=== PATIENT | female | born 1930 | race Caucasian/White ===

== ENCOUNTER 2017-09-07 08:57 | Emergency (ER) | payer MEDICARE ==
[~2017-09-07] VITALS: Ht 165.1 cm; Wt 83.9 kg
[2017-09-07] MEDS ORDERED: ASPIR 8181 MG PO (09:11)
[2017-09-07] MEDS ORDERED: CARVEDILOL12.5 MG PO (09:12)
[2017-09-07] MEDS ORDERED: CALICUM 500+D1 EACH PO (09:12)
[2017-09-07] MEDS ORDERED: VITAMIN D1000 UNI1 PO (09:12)
[2017-09-07] MEDS ORDERED: GABAPENTIN 100100 MG PO (09:12)
[2017-09-07] MEDS ORDERED: SYNTHROID75 MCG PO (09:13)
[2017-09-07] MEDS ORDERED: IMDUR 30 MG TAB30 M1 PO (09:13)
[2017-09-07] MEDS ORDERED: AMARYL4 MG PO (09:13)
[2017-09-07] MEDS ORDERED: LANTUS100 UNIT/M SUBQ (09:13)
[2017-09-07] MEDS ORDERED: METFORMIN HCL500 MG PO (09:14)
[2017-09-07] MEDS ORDERED: NITROGLYCERIN0.3 M1 PO (09:14)
[2017-09-07] MEDS ORDERED: OMEPRAZOLE 20 M20 M1 PO (09:14)
[2017-09-07] MEDS ORDERED: MAXZIDE-25 MG1 EACH PO (09:15)
[2017-09-07 09:40] LABS: ABSOLUTE BASOPHILS 0.1 thou/uL (0.0-0.2); ABSOLUTE EOSINOPHILS 0.3 thou/uL (0.0-0.7); ABSOLUTE LYMPHOCYTES 1.6 thou/uL (0.8-5.3); ABSOLUTE MONOCYTES 0.6 thou/uL (0.0-1.2); ABSOLUTE NEUTROPHILS 4.8 thou/uL (1.6-8.1); BASOPHILS 0.9 %; EOSINOPHILS 3.5 %; HEMATOCRIT 41.6 % (37.0-47.0); HEMOGLOBIN 13.9 gm/dL (12.0-15.0); LYMPHOCYTES 22.5 %; MCHC 33.4 g/dL (28.0-37.0); MCV 89.8 fL (80.0-100.0); MONOCYTES 8.2 %; MPV 8.9 fl. (7.2-11.1); NUCLEATED RBCS 0 /100WBC; PLATELET COUNT* 298 thou/uL (150-400); POLYS 64.9 %; RBC 4.63 mil/uL (4.20-5.00); RDW-CV 16.2 % (10.5-14.5); WBC 7.3 thou/uL (4.0-11.0)
[2017-09-07 09:42] LABS: ANION GAP 10 mmol/L (7-16); BUN 21 mg/dL (7-18); CALCIUM 9.4 mg/dL (8.5-10.1); CHLORIDE 99 mmol/L (98-107); CO2 26 mmol/L (21-32); GLUCOSE 211 mg/dL (70-99); POTASSIUM 4.2 mmol/L (3.5-5.1); SODIUM 135 mmol/L (136-145)
[2017-09-07 09:45] LABS: APTT 26.7 Seconds (25.0-31.3); PROTIME 10.2 Seconds (9.20-11.50)
[2017-09-07 09:53] LABS: ALBUMIN 3.6 g/dL (3.4-5.0); ALKALINE PHOSPHATASE 64 U/L (46-116); LIPASE 166 U/L (73-393); NT-PRO BRAIN NAT PEPTIDE 134 pg/mL (<300); SGOT 14 U/L (15-37); SGPT 21 U/L (30-65); TOTAL BILIRUBIN 0.5 mg/dL (<0.1-1.0); TOTAL PROTEIN 7.3 g/dL (6.4-8.2); TROPONIN-I LEVEL <0.06 ng/mL (<0.06)
--- NOTE | 2017-09-07 11:55 | EKG ---
[place] [address] ELECTROCARDIOGRAM REPORT Name: KEATON CALZADA Room: [facility]#: [id number] Admission: 09/07/17 Attend Phys: Discharge: Date of : 34 Report #: [id number] THIS REPORT FOR: //name// [facility] ED Test Date: 2017-09-07 Test Time: 09:01:35 Pat Name: KEATON CALZADA Department: Room: Gender: F Sheet Cutter: Regla ROBERTSON : 1930 Requested By: Kim Weinstein Order Number: [id number] MD: Isauro Amador Measurements Intervals [place] Rate: 59 P: 49 IA: 188 QRS: 34 QRSD: 112 T: 53 QT: 457 QTc: 453 Interpretive Statements Sinus rhythm poor r wave progression Borderline low voltage, extremity leads No previous ECG available for comparison Electronically Signed On 09-07-2017 11:55:20 CDT by Isauro Amador [email or web address] <ELECTRONICALLY SIGNED> By: Isauro Amador MD, [facility] 09/07/17 1155 0901 0901 Isauro Amador MD, FACC /EPI
[2017-09-07] MEDS ORDERED: TORADOL 10 MG T10 MG PO (12:21)
[2017-09-07] MEDS ORDERED: DIAZEPAM 2MG TAB2 MG PO (12:21)
[2017-09-07 12:25] VITALS: BP 131/61
== END 2017-09-07 12:25 | disposition home or self-care (01) ==
LOC: M.ERS 08:57
PROVIDERS: Personal Emergency Response Attendant
DX: R07.89 Other chest pain (principal); E11.9 Type 2 diabetes mellitus without complications; I10 Essential (primary) hypertension; E78.00 Pure hypercholesterolemia, unspecified; Z90.49 Acquired absence of other specified parts of digestive tract; Z90.89 Acquired absence of other organs; Z88.0 Allergy status to penicillin; Z79.4 Long term (current) use of insulin

== ENCOUNTER 2017-09-18 07:28 | Emergency (ER) | payer MEDICARE ==
[~2017-09-18] VITALS: Ht 165.1 cm; Wt 81.7 kg
[~2017-09-18 07:28] MED LIST: AMARYL4 MG PO; ASPIR 8181 MG PO; CALICUM 500+D1 EACH PO; CARVEDILOL12.5 MG PO; DIAZEPAM 2MG TAB2 MG PO; GABAPENTIN 100100 MG PO; IMDUR 30 MG TAB30 M1 PO; LANTUS100 UNIT/M SUBQ; MAXZIDE-25 MG1 EACH PO; METFORMIN HCL500 MG PO; NITROGLYCERIN0.3 M1 PO; OMEPRAZOLE 20 M20 M1 PO; SYNTHROID75 MCG PO; TORADOL 10 MG T10 MG PO; VITAMIN D1000 UNI1 PO
[2017-09-18 08:30] LABS: HEMOGLOBIN 14.4 gm/dL (12.0-15.0); MCV 89.6 fL (80.0-100.0); MPV 8.3 fl. (7.2-11.1); NUCLEATED RBCS 0 /100WBC
[2017-09-18 08:34] LABS: HEMATOCRIT 42.9 % (37.0-47.0); MCH 30.1 pg (26.0-34.0); MCHC 33.6 g/dL (28.0-37.0); PLATELET COUNT* 309 thou/uL (150-400); RBC 4.78 mil/uL (4.20-5.00); RDW-CV 16.3 % (10.5-14.5); WBC 10.1 thou/uL (4.0-11.0)
[2017-09-18 08:38] LABS: ANION GAP 9 mmol/L (7-16); APTT 24.5 Seconds (25.0-31.3); BUN 26 mg/dL (7-18); CALCIUM 9.4 mg/dL (8.5-10.1); CHLORIDE 101 mmol/L (98-107); CO2 31 mmol/L (21-32); GLUCOSE 150 mg/dL (70-99); INR 1.1; POTASSIUM 3.2 mmol/L (3.5-5.1); PROTIME 10.5 Seconds (9.20-11.50); SODIUM 141 mmol/L (136-145)
[2017-09-18 08:47] LABS: ALBUMIN 3.5 g/dL (3.4-5.0); ALKALINE PHOSPHATASE 67 U/L (46-116); NT-PRO BRAIN NAT PEPTIDE 134 pg/mL (<300); SGOT 12 U/L (15-37); SGPT 21 U/L (30-65); TOTAL BILIRUBIN 0.4 mg/dL (<0.1-1.0); TROPONIN-I LEVEL <0.06 ng/mL (<0.06)
[2017-09-18 09:10] LABS: ABSOLUTE EOSINOPHILS 0.2 thou/uL (0.0-0.7); ABSOLUTE LYMPHOCYTES 1.4 thou/uL (0.8-5.3); ABSOLUTE MONOCYTES 0.9 thou/uL (0.0-1.2); ABSOLUTE NEUTROPHILS 7.6 thou/uL (1.6-8.1); ATYPICAL LYMPHS 1 %; PLATELET ESTIMATE ADEQUATE
[2017-09-18 09:16] VITALS: BP 158/60
[2017-09-18 09:30] LABS: URINE BILIRUBIN NEGATIVE (Negative); URINE BLOOD NEGATIVE (Negative); URINE CLARITY CLEAR; URINE COLOR YELLOW; URINE GLUCOSE-RANDOM NEGATIVE (Negative); URINE KETONES NEGATIVE (Negative); URINE LEUKOCYTES-REFLEX NEGATIVE (Negative); URINE NITRITE-REFLEX NEGATIVE (Negative); URINE PROTEIN NEGATIVE (Negative); URINE SPECIFIC GRAVITY 1.015 (1.005-1.030); URINE UROBILINOGEN 0.2 E.U./dl (0.2-1.0)
--- NOTE | 2017-09-18 10:09 | EKG ---
[place] [address] ELECTROCARDIOGRAM REPORT Name: KEATON CALZADA Room: [facility]#: [id number] Admission: 09/18/17 Attend Phys: Discharge: 09/18/17 Date of : 34 Report #: [id number] THIS REPORT FOR: //name// [facility] ED Test Date: 2017-09-18 Test Time: 07:59:59 Pat Name: KEATON CALZADA Department: Room: Gender: F Financing Analyst: Regla HART : 1930 Requested By: Maxi Barron Order Number: [id number] MD: Isauro Amador Measurements Intervals [place] Rate: 55 P: 19 TX: 179 QRS: 17 QRSD: 105 T: 11 QT: 460 QTc: 440 Interpretive Statements Sinus bradycardia Consider anterior infarct Compared to ECG 09/07/2017 09:01:35 no change Electronically Signed On 09-18-2017 10:08:48 CDT by Isauro Amador [email or web address] <ELECTRONICALLY SIGNED> By: Isauro Amador MD, [facility] 09/18/17 1008 0759 0759 Isauro Amador MD, FACC /EPI
[2017-09-18] MEDS ORDERED: TUMS PO (11:24)
[2017-09-18] MEDS ORDERED: ATORVASTATIN CA40 MG PO (11:25)
[2017-09-18] MEDS ORDERED: GLUCOPHAGE XR500 MG PO (11:27)
[2017-09-18] MEDS ORDERED: NITROGLYCERIN0.4 MG SUBLING (11:27)
[2017-09-18] MEDS ORDERED: OMEPRAZOLE 20 M20 M1 PO (11:28)
[2017-09-18] MEDS ORDERED: PIOGLITAZONE15 MG PO (11:28)
== END 2017-09-18 09:16 | disposition home or self-care (01) ==
LOC: M.ERS 07:28
PROVIDERS: Family Medicine
DX: R53.1 Weakness (principal); E11.9 Type 2 diabetes mellitus without complications; I10 Essential (primary) hypertension; E78.00 Pure hypercholesterolemia, unspecified; Z90.49 Acquired absence of other specified parts of digestive tract; Z79.4 Long term (current) use of insulin; Z88.0 Allergy status to penicillin

== ENCOUNTER 2019-08-09 14:45 | Inpatient (IN) | payer MEDICARE ==
[~2019-08-09] VITALS: Ht 165.1 cm; Wt 83.9 kg
--- NOTE | ~2019-08-09 | EEG ---
[address] [address] EEG STUDY REPORT Name: KEATON CALZADA Johana Room: [address] [place] .#: [id number] Admission: 08/10/19 Attend Phys: Ace Grimaldo MD Discharge: Date of : 32 Report #: [id number] THIS REPORT FOR: //name// CC: Tyler Grimaldo DATE OF SERVICE: 08/10/2019 This patient is being evaluated for altered mental status. EEG was done by placing the electrodes by standard 10-20 system of electrode placement. Both referential and sequential montages were used for recording. Background activity in this patient's EEG is about 7-8 Hz and 30 microvolt. The patient became drowsy and that is associated with bilateral slowing and vertex sharp waves. Photic stimulation is unremarkable. Throughout the record, no active epileptiform activity was noticed. IMPRESSION: This patient's EEG is disorganized and poorly formed. That is a nonspecific abnormality, which can occur with encephalopathy, effect of psychotropic medication, dementia, etc. Clinical correlation is recommended. By: 1623 1631Phenry Cordova MD /nt
--- NOTE | ~2019-08-09 | CON ---
[address] [address] CONSULTATION Name: KEATON CALZADA Room: [facility]#: [id number] Admission: 08/09/19 Attend Phys: Discharge: Date of : 32 Report #: [id number] THIS REPORT FOR: //name// cc: Tyler Pérez Chad W. DO ~ THIS REPORT FOR: //name// CC: Tyler López DATE OF SERVICE: 08/09/2019 HISTORY OF PRESENT ILLNESS: This is an 89-year-old female patient who was seen by me for a stroke protocol. I talked to the patient and the patient's daughter. As I understand, this patient had an episode of speech difficulty or confusion, it is not clear. Both the daughter and the patient thinks that they are back to the baseline. They never had any focal neurological deficit. Apparently, she had another episode of speech difficulty or TIA a few years ago and some workup was done, but the daughter is not certain. The patient's baseline is that she lives in independent living. She does not cook and they provided the food to her. She lives with her and between themselves they are able to manage it. So I do not know how good her memory is even before that. At this time, she thinks she was having some speech difficulty, but I am not totally certain about that. She does have a history of diabetes and the record indicates that she may have had some hypoglycemia in the past. At this time when she came in, her blood sugar was 201. REVIEW OF SYSTEMS: A 14-point review of system was carried out. She is on multiple medications. She had exploratory surgeries and breast biopsies in the past. She had a right elbow surgery, tonsillectomy. She does have a history of high cholesterol, angioplasty in the past, so she does have history of vascular disease. This was her relevant 14-point review of system. PAST MEDICAL HISTORY: Positive for possible TIA, but I am not totally certain about it because no good history is available. FAMILY HISTORY: Unremarkable. SOCIAL HISTORY: As described above. She lives with her . PHYSICAL EXAMINATION: Indicate she is alert and responsive. She knows what month it is. She could not tell me the exact date. She knows what hospital she is in. She could not name the president. I asked the daughter whether it is her baseline or is it different, she thinks it is her baseline. Cranial nerve examination 2-12 looks unremarkable. Neuromuscular examination was symmetrical. [address] [place] [address] CONSULTATION Name: KEATON CALZADA [id number] Admission: 08/09/19 Attend Phys: Discharge: Date of : 32 Report #: [id number] There is no meningeal sign. There is no carotid bruit. She is moderately built individual. She does not have any dysmorphic features of eyes, ears and face. Pulses are palpable. No cerebellar signs. I could not look at the patient's fundus. Her blood pressure is high and is running about 208/86 now and blood pressure on arrival was 221/96. Cardiac and respiratory examination appears mostly noncontributory. 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 It is also possible that she had a transient ischemic attack or even a stroke. It is difficult to tell in this patient. I had a long talk with the patient and the daughter. We talked about TPA. We discussed that minor deficit is not necessarily a contraindication and after discussing all the options with the patient and the daughter, they decided that they will not like to proceed with TPA and that is reasonable because the symptoms are back to the baseline as I understand, although it is difficult for me to tell. She does need further workup instead of doing a CT angio, which I was told she had, but she says she did not and looks like she did not. Because of that, I talked to the MRI people. They said, they can do stat MRI on her. They will do a fast protocol, so we will get an MRI and MRA done and see what we need to do. If MRI is clean and MRA does not show any stenosis, then we should think that it is probably hypertensive encephalopathy and try to lower the blood pressure somewhat cautiously. If that shows any abnormality, we will proceed accordingly. By: 1635 1712Phenry Cordova MD /nt
[~2019-08-09 14:45] MED LIST changes: +GLUCOPHAGE XR500 M1 PO; +LIPITOR40 MG PO; +NITROGLYCERIN0.4 MG SUBLING; +PIOGLITAZONE15 MG PO; +TUMS PO
[2019-08-09 14:47] VITALS: BP 221/96
[2019-08-09] MEDS ORDERED: ACETAMINOPHEN500 M1 PO (14:57)
[2019-08-09] MEDS ORDERED: ASPERCREME1 EACH TOP (14:57)
[2019-08-09] MEDS ORDERED: MELOXICAM15 MG PO (14:59)
[2019-08-09] MEDS ORDERED: COZAAR 25 MG TA25 M1 PO (14:59)
[2019-08-09] MEDS ORDERED: PROCTOZONE-HC30 GM RECTAL (15:00)
[2019-08-09] MEDS ORDERED: [UNRECOGNIZED DRUG - OTHER] TOP (15:00)
[2019-08-09 15:40] LABS: ABSOLUTE BASOPHILS 0.1 thou/uL (0.0-0.2); ABSOLUTE EOSINOPHILS 0.3 thou/uL (0.0-0.7); ABSOLUTE LYMPHOCYTES 1.6 thou/uL (0.8-5.3); ABSOLUTE MONOCYTES 0.7 thou/uL (0.0-1.2); ABSOLUTE NEUTROPHILS 4.7 thou/uL (1.6-8.1); BASOPHILS 1.3 %; EOSINOPHILS 4.1 %; HEMATOCRIT 38.7 % (37.0-47.0); HEMOGLOBIN 13.2 gm/dL (12.0-15.0); LYMPHOCYTES 22.1 %; MCH 30.4 pg (26.0-34.0); MCHC 34.2 g/dL (28.0-37.0); MCV 88.8 fL (80.0-100.0); MONOCYTES 9.9 %; NUCLEATED RBCS 0 /100WBC; PLATELET COUNT* 281 thou/uL (150-400); POLYS 62.6 %; RBC 4.36 mil/uL (4.20-5.00); RDW-CV 15.6 % (10.5-14.5); WBC 7.4 thou/uL (4.0-11.0)
[2019-08-09 15:47] LABS: CREATININE 1.2 mg/dL (0.6-1.3); POTASSIUM 4.2 mmol/L (3.5-5.1); PROTIME 10.6 Seconds (9.20-11.50)
[2019-08-09 15:52] LABS: ALBUMIN 3.4 g/dL (3.4-5.0); TOTAL BILIRUBIN 0.3 mg/dL (<0.1-1.0); TOTAL PROTEIN 6.6 g/dL (6.4-8.2)
[2019-08-09 16:04] LABS: URINE BILIRUBIN NEGATIVE (Negative); URINE BLOOD NEGATIVE (Negative); URINE CLARITY CLEAR; URINE COLOR YELLOW; URINE GLUCOSE-RANDOM NEGATIVE (Negative); URINE KETONES NEGATIVE (Negative); URINE LEUKOCYTES NEGATIVE (Negative); URINE NITRITE NEGATIVE (Negative); URINE PROTEIN NEGATIVE (Negative)
[2019-08-09 17:28] VITALS: BP 215/87
[2019-08-09 18:29] VITALS: BP 216/80
[2019-08-09 18:59] VITALS: BP 168/70
[2019-08-09 19:30] VITALS: BP 183/73
[2019-08-09] MEDS ORDERED: MELOXICAM7.5 MG PO (19:39)
[2019-08-09 23:46] VITALS: BP 171/64
[2019-08-10] VITALS (7 sets, daily range): BP systolic 128–217; BP diastolic 70–100
[2019-08-10 04:48] LABS: ANION GAP 9 mmol/L (7-16); BUN 15 mg/dL (7-18); CALCIUM 8.8 mg/dL (8.5-10.1); CHLORIDE 108 mmol/L (98-107); CO2 28 mmol/L (21-32); CREATININE 0.8 mg/dL (0.6-1.3); GLUCOSE 69 mg/dL (70-99); MAGNESIUM 1.6 mg/dL (1.8-2.4); POTASSIUM 3.4 mmol/L (3.5-5.1); SODIUM 145 mmol/L (136-145)
[2019-08-10 05:01] LABS: CHOLESTEROL 117 mg/dL (<200); HDL CHOLESTEROL 35 mg/dL (>40); LDL CHOLESTEROL 58 mg/dL (<100); SERUM ASSESSMENT Clear; TC:HDL 3.3 Ratio (Not establshd); TRIGLYCERIDE 123 mg/dL (<150); VLDL 25 mg/dL (<40)
--- NOTE | 2019-08-10 08:50 | EKG ---
[place] [address] ELECTROCARDIOGRAM REPORT Name: KEATON CALZADA Room: [address]#: [id number] Admission: 08/09/19 Attend Phys: Ace Grimaldo, Discharge: Date of : 34 Date of Service: 08/09/19 1451 Report #: [id number] THIS REPORT FOR: //name// [facility] ED Test Date: 2019-08-09 Test Time: 14:51:00 Pat Name: KEATON CALZADA Department: Room: [facility] Gender: F Foreign Languages Department Chair: [facility] : 1930 Requested By: Corby López Order Number: [id number] MD: Isauro Amador Measurements Intervals [place] Rate: 67 P: 48 MI: 166 QRS: 46 QRSD: 95 T: 35 QT: 439 QTc: 464 Interpretive Statements Sinus rhythm consider anterior infarction, old Low voltage, precordial leads Compared to ECG 09/18/2017 07:59:59 Low QRS voltage now present Sinus bradycardia no longer present Electronically Signed On 08-10-2019 8:49:20 CDT by Isauro Amador [email or web address] <ELECTRONICALLY SIGNED> By: Isauro Amador MD, FACC 08/10/19 0849 1451 1451 Isauro Amador MD, FAC /EPI
--- NOTE | 2019-08-10 12:14 | 2DMMODE ---
[place] [address] 2 D/M-MODE ECHOCARDIOGRAM Name: KEATON CALZADA Room: [address] Leonid#: [id number] Admission: 08/09/19 Attend Phys: Ace Grimaldo, Discharge: Date of : 34 Date of Service: 08/10/19 1212 Report #: [id number] THIS REPORT FOR: cc: Tyler Pérez Chad W. DO Blick,Isauro Felix MD [facility] ~ APPROVED REPORT Study performed: 08/10/2019 10:04:38 EXAM: Comprehensive 2D, Doppler, and color-flow Echocardiogram Patient Location: In-Patient Room #: [facility] Status: routine BSA: 1.90 HR: 84 bpm BP: 180/76 mmHg Rhythm: NSR Other Information Study Quality: Good Indications CVA/TIA Echo Enhancing Agent Indication: Rule out Shunt Agent(s) / Amount(s) Used: Agitated Saline 10 cc 2D Dimensions IVSd: 10.45 (7-11mm) LVOT Diam: 20.20 (18-24mm) LVDd: 44.01 mm PWd: 9.50 (7-11mm) Ascending Ao: 32.93 (22-36mm) LVDs: 25.17 (25-40mm) Aortic Root: 28.76 mm Volumes Left Atrial Volume (Systole) LA ESV Index: 24.20 mL/m2 Aortic Valve AoV Peak Leo.: 1.34 m/s AO Peak Gr.: 7.16 mmHg LVOT Max P.47 mmHg AO Mean Gr.: 4.07 mmHg LVOT Mean P.92 [place] [address] 2 D/M-MODE ECHOCARDIOGRAM Name: TEDDY CALZADAKWASIITALO Johana Room: [address] M[address]R.#: [id number] Admission: 08/09/19 Attend Phys: Ace Grimaldo, Discharge: Date of : 32 Date of Service: 08/10/19 1212 Report #: [id number] LVOT Max V: 1.06 m/s AO V2 VTI: 27.56 cm LVOT Mean V: 0.62 m/s JOAQUIN (VTI): 2.42 cm2 LVOT V1 VTI: 20.81 cm Mitral Valve E/A Ratio: 0.61 MV Decel. Time: 187.02 ms MV E Max Leo.: 0.67 m/s MV PHT: 54.23 ms MVA (PHT): 4.06 cm2 TDI E/Lateral E': 9.57 Lateral E' Leo.: 0.07 m/s Pulmonary Valve PV Peak Leo.: 1.08 m/s PV Peak Gr.: 4.65 mmHg Left Ventricle The left ventricle is normal size. There is normal LV segmental wall motion. There is normal left ventricular wall thickness. Left ventricular systolic function is normal. The left ventricular ejection fraction is within the normal range. LVEF is 55-60%. Grade I - abnormal relaxation pattern. Right Ventricle The right ventricle is normal size. The right ventricular systolic function is normal. Atria The left atrium size is normal. The interatrial septum is intact with no evidence for an atrial septal defect. The right atrium size is normal. Aortic Valve The aortic valve is normal in structure. No aortic regurgitation is present. There is no aortic valvular stenosis. Mitral Valve The mitral valve is normal in structure. There is no mitral valve regurgitation noted. No evidence of mitral valve stenosis. Tricuspid Valve The tricuspid valve is normal in structure. [place] [address] 2 D/M-MODE ECHOCARDIOGRAM Name: KEATON CALZADA [address] [id number] Admission: 08/09/19 Attend Phys: Ace Grimaldo, Discharge: Date of : 34 Date of Service: 08/10/19 1212 Report #: [id number] Pulmonic Valve The pulmonary valve is normal in structure. There is no pulmonic valvular regurgitation. Great Vessels The aortic root is normal in size. IVC is normal in size and collapses >50% with inspiration. Pericardium There is no pericardial effusion. <Conclusion> LVEF is 55-60%. The interatrial septum is intact with no evidence for an atrial septal defect. <ELECTRONICALLY SIGNED> By: Isauro Amador MD, FACC 08/10/19 121 11 121 Isauro Amador MD, FACC /INF
[2019-08-11] VITALS (9 sets, daily range): BP systolic 123–212; BP diastolic 60–116
[2019-08-12 00:09] VITALS: BP 173/73
[2019-08-12 05:10] VITALS: BP 170/80
[2019-08-12 06:00] VITALS: BP 150/70
[2019-08-12] MEDS ORDERED: ASPIR 8181 MG PO (08:31)
[2019-08-12] MEDS ORDERED: IMDUR 60 MG TAB60 M1 PO (08:31)
[2019-08-12] MEDS ORDERED: SPIRONOLACTONE25 MG PO (08:31)
[2019-08-12] MEDS ORDERED: CLOPIDOGREL75 MG PO (08:31)
[2019-08-12] MEDS ORDERED: HYDROCHLOROTHIA25 M1 PO (08:31)
[2019-08-12 08:58] LABS: CALCIUM 9.2 mg/dL (8.5-10.1); MAGNESIUM 1.6 mg/dL (1.8-2.4); POTASSIUM 3.3 mmol/L (3.5-5.1)
[2019-08-12 10:50] VITALS: BP 164/74
== END 2019-08-12 12:30 | disposition home health service (06) | DRG 65 ==
LOC: M.ERS 14:45 → M.2W 17:03 → M.TBA-ER 17:03 → M.2W 18:04
PROVIDERS: Emergency Medicine; ADMIT Internal Medicine
DX: I63.89 Other cerebral infarction (principal); I16.1 Hypertensive emergency; I12.9 Hypertensive chronic kidney disease with stage 1 through stage 4 chronic kidney disease, or unspecified chronic kidney disease; N18.3 Chronic kidney disease, stage 3 (moderate); E78.00 Pure hypercholesterolemia, unspecified; E11.22 Type 2 diabetes mellitus with diabetic chronic kidney disease; I25.10 Atherosclerotic heart disease of native coronary artery without angina pectoris; E03.9 Hypothyroidism, unspecified; F03.90 Unspecified dementia, unspecified severity, without behavioral disturbance, psychotic disturbance, mood disturbance, and anxiety; Z88.0 Allergy status to penicillin; Z95.5 Presence of coronary angioplasty implant and graft; Z90.89 Acquired absence of other organs; Z79.84 Long term (current) use of oral hypoglycemic drugs; Z79.899 Other long term (current) drug therapy

== ENCOUNTER 2020-01-07 17:47 | Emergency (ER) | payer MEDICARE ==
[~2020-01-07] VITALS: Ht 165.1 cm; Wt 85.3 kg
[~2020-01-07 17:47] MED LIST changes: +ACETAMINOPHEN500 M1 PO; +ASPERCREME1 EACH TOP; +CLOPIDOGREL75 MG PO; +COZAAR 25 MG TA25 M1 PO; +HYDROCHLOROTHIA25 M1 PO; +IMDUR 60 MG TAB60 M1 PO; +MELOXICAM15 MG PO; +MELOXICAM7.5 MG PO; +PROCTOZONE-HC30 GM RECTAL; +SPIRONOLACTONE25 MG PO; +[UNRECOGNIZED DRUG - OTHER] TOP
[2020-01-07] MEDS ORDERED: ZITHROMAX250 MG PO (21:04)
[2020-01-07] MEDS ORDERED: HYDROCODON-ACE1 EAC7 PO (21:04)
[2020-01-07 21:24] VITALS: BP 180/70
== END 2020-01-07 21:24 | disposition home or self-care (01) ==
LOC: M.ERS 17:47
DX: S22.081A Stable burst fracture of T11-T12 vertebra, initial encounter for closed fracture (principal); S01.412A Laceration without foreign body of left cheek and temporomandibular area, initial encounter; R91.8 Other nonspecific abnormal finding of lung field; Z20.828 Contact with and (suspected) exposure to other viral communicable diseases; I10 Essential (primary) hypertension; E78.00 Pure hypercholesterolemia, unspecified; I25.10 Atherosclerotic heart disease of native coronary artery without angina pectoris; E03.9 Hypothyroidism, unspecified; Z90.49 Acquired absence of other specified parts of digestive tract; Z79.4 Long term (current) use of insulin; Z88.0 Allergy status to penicillin; W18.39XA Other fall on same level, initial encounter; Y93.89 Activity, other specified; Y92.89 Other specified places as the place of occurrence of the external cause; Y99.8 Other external cause status

== ENCOUNTER 2020-01-21 11:21 | Inpatient (IN) | payer MEDICARE ==
[~2020-01-21] VITALS: Ht 165.1 cm; Wt 84.4 kg
[~2020-01-21 11:21] MED LIST changes: +HYDROCODON-ACE1 EAC7 PO; +ZITHROMAX250 MG PO
[2020-01-21 11:30] VITALS: BP 172/70
[2020-01-21 12:13] LABS: ABSOLUTE BASOPHILS 0.1 thou/uL (0.0-0.2); ABSOLUTE EOSINOPHILS 0.1 thou/uL (0.0-0.7); ABSOLUTE LYMPHOCYTES 1.5 thou/uL (0.8-5.3); ABSOLUTE NEUTROPHILS 5.1 thou/uL (1.6-8.1); BASOPHILS 0.7 %; EOSINOPHILS 1.5 %; HEMATOCRIT 35.6 % (37.0-47.0); HEMOGLOBIN 12.3 gm/dL (12.0-15.0); LYMPHOCYTES 19.8 %; MCH 30.7 pg (26.0-34.0); MCHC 34.5 g/dL (28.0-37.0); MONOCYTES 12.4 %; MPV 7.3 fl. (7.2-11.1); NUCLEATED RBCS 0 /100WBC; PLATELET COUNT* 342 thou/uL (150-400); POLYS 65.6 %; RDW-CV 14.7 % (10.5-14.5); WBC 7.8 thou/uL (4.0-11.0)
[2020-01-21 12:24] LABS: CALCIUM 9.5 mg/dL (8.5-10.1); CREATININE 1.2 mg/dL (0.6-1.3); POTASSIUM 4.1 mmol/L (3.5-5.1)
[2020-01-21 12:29] LABS: ALBUMIN 3.6 g/dL (3.4-5.0); TOTAL BILIRUBIN 0.4 mg/dL (<0.1-1.0); TOTAL PROTEIN 7.3 g/dL (6.4-8.2)
[2020-01-21 15:00] VITALS: BP 155/65
[2020-01-21 16:00] VITALS: BP 101/74
[2020-01-21 20:00] VITALS: BP 193/84
[2020-01-22] VITALS (8 sets, daily range): BP systolic 128–186; BP diastolic 69–89
[2020-01-22 05:00] LABS: HEMATOCRIT 33.5 % (37.0-47.0); HEMOGLOBIN 11.7 gm/dL (12.0-15.0); MCH 30.4 pg (26.0-34.0); MCHC 34.9 g/dL (28.0-37.0); MCV 86.9 fL (80.0-100.0); MPV 7.4 fl. (7.2-11.1); RBC 3.85 mil/uL (4.20-5.00); RDW-CV 14.3 % (10.5-14.5); WBC 6.7 thou/uL (4.0-11.0)
[2020-01-22 05:11] LABS: ALBUMIN 3.3 g/dL (3.4-5.0); CALCIUM 8.7 mg/dL (8.5-10.1); CREATININE 0.8 mg/dL (0.6-1.3); PHOSPHORUS* 2.7 mg/dL (2.5-4.9); POTASSIUM 3.5 mmol/L (3.5-5.1); TOTAL BILIRUBIN 0.3 mg/dL (<0.1-1.0); TOTAL PROTEIN 6.6 g/dL (6.4-8.2)
--- NOTE | 2020-01-22 12:11 | EKG ---
[place] [address] ELECTROCARDIOGRAM REPORT Name: KEATON CALZADA Room: [address] ADM IN [facility].#: [id number] Admission: 01/21/20 Attend Phys: Ash Gilbert Discharge: Date of : 34 Date of Service: 01/21/20 1159 Report #: [id number] THIS REPORT FOR: //name// [facility] ED Test Date: 2020-01-21 Test Time: 11:59:19 Pat Name: KEATON CALZADA Department: Room: [facility] Gender: F Lowerator Operator: : 1930 Requested By: Herb Pickett Order Number: [id number] MD: Isauro Amador Measurements Intervals [place] Rate: 57 P: 0 MD: 213 QRS: 24 QRSD: 112 T: 37 QT: 464 QTc: 452 Interpretive Statements Sinus rhythm poor r wave progression Borderline prolonged MD interval Borderline intraventricular conduction delay Baseline wander in lead(s) III Compared to ECG 08/09/2019 14:51:00 no change Electronically Signed On 01-22-2020 12:11:30 CDT by Isauro Amador [email or web address] <ELECTRONICALLY SIGNED> By: Isauro Amador MD, FACC 01/22/20 1211 1159 1159 Isauro Amador MD, FACC /EPI
[2020-01-23 04:00] VITALS: BP 154/51
[2020-01-23 05:01] LABS: HEMATOCRIT 33.5 % (37.0-47.0); HEMOGLOBIN 11.9 gm/dL (12.0-15.0); MCHC 35.6 g/dL (28.0-37.0); MCV 87.1 fL (80.0-100.0); MPV 7.6 fl. (7.2-11.1); RBC 3.85 mil/uL (4.20-5.00); RDW-CV 14.5 % (10.5-14.5); WBC 7.3 thou/uL (4.0-11.0)
[2020-01-23 05:29] LABS: ALBUMIN 3.4 g/dL (3.4-5.0); PHOSPHORUS* 3.4 mg/dL (2.5-4.9); POTASSIUM 3.8 mmol/L (3.5-5.1)
[2020-01-23 06:05] LABS: GLYCOHEMOGLOBIN (HGB A1C) 7.4 % (4.8-5.6)
[2020-01-23 12:38] VITALS: BP 146/59
[2020-01-23 20:00] VITALS: BP 135/58
[2020-01-24 00:31] VITALS: BP 146/57
[2020-01-24 08:00] VITALS: BP 157/73
[2020-01-24 09:51] LABS: CALCIUM 9.2 mg/dL (8.5-10.1); CREATININE 1.2 mg/dL (0.6-1.3); POTASSIUM 4.2 mmol/L (3.5-5.1)
[2020-01-24] MEDS ORDERED: GABAPENTIN 100100 MG PO (10:36)
[2020-01-24] MEDS ORDERED: METFORMIN HCL500 M1 PO (10:36)
[2020-01-24] MEDS ORDERED: LIDOPATCH1 EACH TOP (10:36)
[2020-01-24] MEDS ORDERED: TRAMADOL 50 MG50 MG PO (10:36)
[2020-01-24 15:22] VITALS: BP 157/73
[2020-01-24 15:42] LABS: CALCIUM 9.1 mg/dL (8.5-10.1); CREATININE 1.2 mg/dL (0.6-1.3); POTASSIUM 3.9 mmol/L (3.5-5.1)
[2020-01-24 16:27] VITALS: BP 153/65
[2020-01-24 18:12] LABS: CALCIUM 9.6 mg/dL (8.5-10.1); CREATININE 1.2 mg/dL (0.6-1.3); POTASSIUM 3.8 mmol/L (3.5-5.1)
[2020-01-24 20:18] VITALS: BP 147/63
[2020-01-25 04:36] LABS: HEMATOCRIT 31.8 % (37.0-47.0); HEMOGLOBIN 11.4 gm/dL (12.0-15.0); MCH 31.1 pg (26.0-34.0); MCHC 35.8 g/dL (28.0-37.0); MPV 7.6 fl. (7.2-11.1); RBC 3.66 mil/uL (4.20-5.00); RDW-CV 14.6 % (10.5-14.5); WBC 7.2 thou/uL (4.0-11.0)
[2020-01-25 04:50] LABS: CALCIUM 9.1 mg/dL (8.5-10.1); MAGNESIUM 1.6 mg/dL (1.8-2.4); POTASSIUM 3.7 mmol/L (3.5-5.1)
[2020-01-25 07:25] VITALS: BP 162/69
[2020-01-25 16:39] VITALS: BP 152/69
[2020-01-25 19:50] VITALS: BP 142/65
[2020-01-26 04:29] LABS: HEMATOCRIT 33.7 % (37.0-47.0); HEMOGLOBIN 11.8 gm/dL (12.0-15.0); MCHC 35.1 g/dL (28.0-37.0); MCV 88.5 fL (80.0-100.0); MPV 7.8 fl. (7.2-11.1); RBC 3.82 mil/uL (4.20-5.00); RDW-CV 14.5 % (10.5-14.5); WBC 7.6 thou/uL (4.0-11.0)
[2020-01-26 04:42] LABS: CALCIUM 9.9 mg/dL (8.5-10.1); CREATININE 0.9 mg/dL (0.6-1.3); MAGNESIUM 1.5 mg/dL (1.8-2.4)
[2020-01-26] MEDS ORDERED: SODIUM CHLORIDE1 G2 PO (06:54)
[2020-01-26 07:21] VITALS: BP 142/65
[2020-01-26 08:30] VITALS: BP 133/56
[2020-01-26 10:26] VITALS: BP 142/65
[2020-01-26 11:32] VITALS: BP 142/65
[2020-01-26 14:45] VITALS: BP 142/65
== END 2020-01-26 11:30 | disposition home health service (06) | DRG 184 ==
LOC: M.ERS 11:21 → M.2W 13:44 → M.TBA-ER 13:44 → M.2W 15:14 → M.ORTHSURG 01-24 19:27
PROVIDERS: Emergency Medicine Emergency Medical Services; Internal Medicine; ADMIT Family Medicine; ATTEND Family Medicine
DX: S22.42XA Multiple fractures of ribs, left side, initial encounter for closed fracture (principal); E87.1 Hypo-osmolality and hyponatremia; Z20.828 Contact with and (suspected) exposure to other viral communicable diseases; E78.00 Pure hypercholesterolemia, unspecified; I25.10 Atherosclerotic heart disease of native coronary artery without angina pectoris; E03.9 Hypothyroidism, unspecified; E78.5 Hyperlipidemia, unspecified; E66.9 Obesity, unspecified; N18.30 Chronic kidney disease, stage 3 unspecified; F03.90 Unspecified dementia, unspecified severity, without behavioral disturbance, psychotic disturbance, mood disturbance, and anxiety; E11.22 Type 2 diabetes mellitus with diabetic chronic kidney disease; M40.294 Other kyphosis, thoracic region; M47.892 Other spondylosis, cervical region; M25.78 Osteophyte, vertebrae; N28.1 Cyst of kidney, acquired; I12.9 Hypertensive chronic kidney disease with stage 1 through stage 4 chronic kidney disease, or unspecified chronic kidney disease; Z86.73 Personal history of transient ischemic attack (TIA), and cerebral infarction without residual deficits; Z90.49 Acquired absence of other specified parts of digestive tract; Z88.0 Allergy status to penicillin; Z82.49 Family history of ischemic heart disease and other diseases of the circulatory system; Z68.31 Body mass index [BMI] 31.0-31.9, adult; Z23 Encounter for immunization; W18.39XA Other fall on same level, initial encounter; Y93.89 Activity, other specified; Y92.89 Other specified places as the place of occurrence of the external cause; Y99.8 Other external cause status

== ENCOUNTER 2020-03-16 08:10 | Inpatient (IN) | payer MEDICARE ==
[~2020-03-16] VITALS: Ht 162.6 cm; Wt 81.3 kg
[~2020-03-16 08:10] MED LIST changes: +LIDOPATCH1 EACH TOP; +METFORMIN HCL500 M1 PO; +SODIUM CHLORIDE1 G2 PO; +TRAMADOL 50 MG50 MG PO
[2020-03-16 08:13] VITALS: BP 157/58
[2020-03-16 08:39] LABS: ABSOLUTE BASOPHILS 0.1 thou/uL (0.0-0.2); ABSOLUTE EOSINOPHILS 0.2 thou/uL (0.0-0.7); ABSOLUTE LYMPHOCYTES 0.9 thou/uL (0.8-5.3); ABSOLUTE MONOCYTES 0.9 thou/uL (0.0-1.2); ABSOLUTE NEUTROPHILS 8.7 thou/uL (1.6-8.1); BASOPHILS 0.6 %; EOSINOPHILS 1.7 %; HEMOGLOBIN 12.2 gm/dL (12.0-15.0); LYMPHOCYTES 8.7 %; MCH 29.6 pg (26.0-34.0); MCHC 33.1 g/dL (28.0-37.0); MCV 89.3 fL (80.0-100.0); MONOCYTES 8.3 %; MPV 7.4 fl. (7.2-11.1); NUCLEATED RBCS 0 /100WBC; PLATELET COUNT* 342 thou/uL (150-400); POLYS 80.7 %; RBC 4.14 mil/uL (4.20-5.00); RDW-CV 15.3 % (10.5-14.5); WBC 10.8 thou/uL (4.0-11.0)
[2020-03-16 08:41] LABS: URINE BILIRUBIN NEGATIVE (Negative); URINE BLOOD NEGATIVE (Negative); URINE CLARITY CLEAR; URINE COLOR YELLOW; URINE GLUCOSE-RANDOM NEGATIVE (Negative); URINE KETONES NEGATIVE (Negative); URINE LEUKOCYTES-REFLEX NEGATIVE (Negative); URINE NITRITE-REFLEX NEGATIVE (Negative); URINE PROTEIN NEGATIVE (Negative); URINE UROBILINOGEN 0.2 E.U./dl (0.2-1.0)
[2020-03-16 08:46] LABS: CALCIUM 8.8 mg/dL (8.5-10.1); CREATININE 0.9 mg/dL (0.6-1.3); POTASSIUM 3.2 mmol/L (3.5-5.1)
[2020-03-16 08:50] LABS: APTT 25.3 Seconds (25.0-31.3); PROTIME 10.5 Seconds (9.20-11.50)
[2020-03-16 08:57] LABS: ALBUMIN 3.1 g/dL (3.4-5.0); TOTAL BILIRUBIN 0.2 mg/dL (<0.1-1.0); TOTAL PROTEIN 6.7 g/dL (6.4-8.2)
[2020-03-16 11:44] LABS: BE 1.2 mmol/L (-2 to +3)
[2020-03-16 13:30] VITALS: BP 205/88
[2020-03-16 17:49] VITALS: BP 174/74
[2020-03-16 18:00] VITALS: BP 187/74
[2020-03-16 22:00] VITALS: BP 161/56
[2020-03-17] VITALS: BP 167/70
[2020-03-17 04:00] VITALS: BP 153/62
[2020-03-17 08:30] VITALS: BP 146/53
--- NOTE | 2020-03-17 11:33 | EKG ---
[place] [address] ELECTROCARDIOGRAM REPORT Name: KEATON CALZADA Room: [address] ADM IN [facility]#: [id number] Admission: 03/16/20 Attend Phys: Ace Grimaldo, Discharge: Date of : 34 Date of Service: 03/16/2017 Report #: [id number] THIS REPORT FOR: //name// [facility] ED Test Date: 2020-03-16 Test Time: 08:17:03 Pat Name: KEATON CALZADA Department: Room: [facility] Gender: F Shim Plug Cutter: MS : 1930 Requested By: Maxi Barron Order Number: [id number] MD: Isauro Amador Measurements Intervals [place] Rate: 52 P: 22 MO: 198 QRS: 9 QRSD: 109 T: 13 QT: 482 QTc: 449 Interpretive Statements Sinus bradycardia previous anterior infarction Compared to ECG 01/21/2020 11:59:19 no change Electronically Signed On 03-17-2020 11:32:58 MANAGER CONSTRUCTION by Isauro Amador [email or web address] <ELECTRONICALLY SIGNED> By: Isauro Amador MD, [facility] 03/17/20 1132 6 08 Isauro Amador MD, [facility] /EPI
[2020-03-17 17:35] VITALS: BP 138/66
[2020-03-17 21:00] VITALS: BP 157/58
[2020-03-18] VITALS: BP 186/75
[2020-03-18 04:00] VITALS: BP 153/70
[2020-03-18 05:22] LABS: CALCIUM 8.7 mg/dL (8.5-10.1); CREATININE 0.8 mg/dL (0.6-1.3); MAGNESIUM 1.7 mg/dL (1.8-2.4); POTASSIUM 4.2 mmol/L (3.5-5.1)
[2020-03-18 08:00] VITALS: BP 112/52
[2020-03-18 12:29] VITALS: BP 101/50
[2020-03-18 13:47] VITALS: BP 101/50
== END 2020-03-18 14:21 | disposition hospice, home (50) | DRG 638 ==
LOC: M.ERS 08:10 → M.2W 09:32 → M.TBA-ER 09:32 → M.2W 17:49
PROVIDERS: Family Medicine; ADMIT Internal Medicine; ATTEND Internal Medicine
DX: E11.649 Type 2 diabetes mellitus with hypoglycemia without coma (principal); E44.0 Moderate protein-calorie malnutrition; G92 Toxic encephalopathy; T38.3X5A Adverse effect of insulin and oral hypoglycemic [antidiabetic] drugs, initial encounter; E11.22 Type 2 diabetes mellitus with diabetic chronic kidney disease; I12.9 Hypertensive chronic kidney disease with stage 1 through stage 4 chronic kidney disease, or unspecified chronic kidney disease; E03.9 Hypothyroidism, unspecified; I25.10 Atherosclerotic heart disease of native coronary artery without angina pectoris; E78.00 Pure hypercholesterolemia, unspecified; F03.90 Unspecified dementia, unspecified severity, without behavioral disturbance, psychotic disturbance, mood disturbance, and anxiety; N18.30 Chronic kidney disease, stage 3 unspecified; Z66 Do not resuscitate; Z20.828 Contact with and (suspected) exposure to other viral communicable diseases; Z68.30 Body mass index [BMI] 30.0-30.9, adult; Z90.49 Acquired absence of other specified parts of digestive tract; Z98.1 Arthrodesis status; Z79.899 Other long term (current) drug therapy; Z79.4 Long term (current) use of insulin; Z79.82 Long term (current) use of aspirin; Z79.01 Long term (current) use of anticoagulants; Z88.0 Allergy status to penicillin; Y92.89 Other specified places as the place of occurrence of the external cause

== ENCOUNTER 2020-04-23 19:57 | Emergency (ER) | payer MEDICARE ==
[~2020-04-23] VITALS: Ht 152.4 cm; Wt 82.6 kg
[2020-04-23 22:58] LABS: URINE BILIRUBIN NEGATIVE (Negative); URINE BLOOD NEGATIVE (Negative); URINE CLARITY CLEAR; URINE COLOR YELLOW; URINE GLUCOSE-RANDOM 2+ (Negative); URINE KETONES NEGATIVE (Negative); URINE LEUKOCYTES-REFLEX 1+ (Negative); URINE NITRITE-REFLEX NEGATIVE (Negative); URINE PROTEIN NEGATIVE (Negative); URINE UROBILINOGEN 0.2 E.U./dl (0.2-1.0)
[2020-04-23] MEDS ORDERED: KEFLEX500 M1 PO (23:37)
[2020-04-23 23:38] LABS: CASTS None Seen /LPF (None Seen); SQUAMOUS >10 Many /LPF (0-3)
[2020-04-23 23:39] LABS: URINE WBC-REFLEX 6-15 Few /HPF (0-5)
[2020-04-23 23:40] LABS: BACTERIA-REFLEX 1-9 Few /HPF (None Seen); RENAL EPITHELIAL CELLS 0-3 Few /LPF (None Seen); URINE RBC 0-2 Rare /HPF (0-2)
[2020-04-23 23:55] VITALS: BP 156/67
[2020-04-23 23:58] LABS: CRYSTALS None Seen /LPF (None Seen)
== END 2020-04-23 23:55 | disposition home or self-care (01) ==
LOC: M.ERS 19:57
PROVIDERS: Personal Emergency Response Attendant
DX: S22.31XA Fracture of one rib, right side, initial encounter for closed fracture (principal); S70.01XA Contusion of right hip, initial encounter; M25.511 Pain in right shoulder; M54.6 Pain in thoracic spine; M54.2 Cervicalgia; E11.9 Type 2 diabetes mellitus without complications; I10 Essential (primary) hypertension; E78.00 Pure hypercholesterolemia, unspecified; I25.10 Atherosclerotic heart disease of native coronary artery without angina pectoris; E03.9 Hypothyroidism, unspecified; Z90.89 Acquired absence of other organs; Z90.49 Acquired absence of other specified parts of digestive tract; Z88.0 Allergy status to penicillin; Z88.8 Allergy status to other drugs, medicaments and biological substances; W18.39XA Other fall on same level, initial encounter; Y93.89 Activity, other specified; Y92.89 Other specified places as the place of occurrence of the external cause; Y99.8 Other external cause status

== ENCOUNTER 2020-07-14 05:54 | Emergency (ER) | payer MEDICARE ==
[~2020-07-14] VITALS: Ht 165.1 cm; Wt 81.7 kg
[~2020-07-14 05:54] MED LIST changes: +KEFLEX500 M1 PO
[2020-07-14 06:11] LABS: ABSOLUTE EOSINOPHILS 0.2 thou/uL (0.0-0.7); ABSOLUTE LYMPHOCYTES 1.4 thou/uL (0.8-5.3); ABSOLUTE MONOCYTES 0.8 thou/uL (0.0-1.2); BASOPHILS 0.6 %; EOSINOPHILS 3.2 %; HEMATOCRIT 39.1 % (37.0-47.0); LYMPHOCYTES 19.1 %; MCH 29.2 pg (26.0-34.0); MCHC 33.2 g/dL (28.0-37.0); MONOCYTES 10.6 %; MPV 7.5 fl. (7.2-11.1); NUCLEATED RBCS 0 /100WBC; PLATELET COUNT* 336 thou/uL (150-400); POLYS 66.5 %; RBC 4.44 mil/uL (4.20-5.00); RDW-CV 15.7 % (10.5-14.5); WBC 7.4 thou/uL (4.0-11.0)
[2020-07-14 06:19] LABS: CALCIUM 9.8 mg/dL (8.5-10.1); CREATININE 0.9 mg/dL (0.6-1.3); POTASSIUM 3.6 mmol/L (3.5-5.1)
[2020-07-14 07:25] LABS: URINE BILIRUBIN NEGATIVE (Negative); URINE BLOOD NEGATIVE (Negative); URINE CLARITY CLEAR; URINE COLOR YELLOW; URINE GLUCOSE-RANDOM NEGATIVE (Negative); URINE KETONES NEGATIVE (Negative); URINE LEUKOCYTES-REFLEX NEGATIVE (Negative); URINE NITRITE-REFLEX NEGATIVE (Negative); URINE PROTEIN NEGATIVE (Negative); URINE UROBILINOGEN 0.2 E.U./dl (0.2-1.0)
[2020-07-14] MEDS ORDERED: HYDROCODON-ACE1 EAC7 PO (08:09)
[2020-07-14 08:15] VITALS: BP 197/96
== END 2020-07-14 08:15 | disposition home or self-care (01) ==
LOC: M.ERS 05:54
PROVIDERS: Emergency Medicine
DX: S32.020A Wedge compression fracture of second lumbar vertebra, initial encounter for closed fracture (principal); S32.010A Wedge compression fracture of first lumbar vertebra, initial encounter for closed fracture; S01.112A Laceration without foreign body of left eyelid and periocular area, initial encounter; M54.6 Pain in thoracic spine; E11.9 Type 2 diabetes mellitus without complications; I10 Essential (primary) hypertension; E78.00 Pure hypercholesterolemia, unspecified; I25.10 Atherosclerotic heart disease of native coronary artery without angina pectoris; E03.9 Hypothyroidism, unspecified; Z90.89 Acquired absence of other organs; Z90.49 Acquired absence of other specified parts of digestive tract; Z88.0 Allergy status to penicillin; Z88.6 Allergy status to analgesic agent; Z88.8 Allergy status to other drugs, medicaments and biological substances; W06.XXXA Fall from bed, initial encounter; Y93.89 Activity, other specified; Y92.89 Other specified places as the place of occurrence of the external cause; Y99.8 Other external cause status

== ENCOUNTER 2021-03-24 11:34 | Emergency (ER) | payer MEDICARE ==
[~2021-03-24] VITALS: Ht 167.6 cm; Wt 78.9 kg
[2021-03-24] MEDS ORDERED: MEGA BIOTIN10000 MCG PO (11:43)
[2021-03-24] MEDS ORDERED: DULCOLAX STOOL100 M1 PO (11:44)
[2021-03-24] MEDS ORDERED: LANTUS SOL100 UNIT/1 SUBQ (11:45)
[2021-03-24] MEDS ORDERED: SENNA8.6 MG PO (11:46)
[2021-03-24] MEDS ORDERED: TRAMADOL 50 MG50 MG PO (11:47)
[2021-03-24 12:01] LABS: BASOPHILS 0.7 %; MCH 30.3 pg (26.0-34.0); MPV 8.1 fl. (7.2-11.1); NUCLEATED RBCS 0 /100WBC
[2021-03-24 12:03] LABS: ABSOLUTE EOSINOPHILS 0.2 thou/uL (0.0-0.7); ABSOLUTE LYMPHOCYTES 1.7 thou/uL (0.8-5.3); ABSOLUTE MONOCYTES 0.8 thou/uL (0.0-1.2); ABSOLUTE NEUTROPHILS 4.2 thou/uL (1.6-8.1); EOSINOPHILS 3.6 %; HEMATOCRIT 44.6 % (37.0-47.0); HEMOGLOBIN 14.9 gm/dL (12.0-15.0); LYMPHOCYTES 24.2 %; MCHC 33.4 g/dL (28.0-37.0); MCV 90.5 fL (80.0-100.0); MONOCYTES 11.1 %; PLATELET COUNT* 317 thou/uL (150-400); POLYS 60.4 %; RBC 4.93 mil/uL (4.20-5.00); WBC 6.9 thou/uL (4.0-11.0)
[2021-03-24 12:12] LABS: CREATININE 0.8 mg/dL (0.6-1.3); POTASSIUM 3.9 mmol/L (3.5-5.1)
[2021-03-24 12:17] LABS: ALBUMIN 3.6 g/dL (3.4-5.0); TOTAL BILIRUBIN 0.3 mg/dL (<0.1-1.0); TOTAL PROTEIN 7.1 g/dL (6.4-8.2)
[2021-03-24 13:02] LABS: URINE BILIRUBIN NEGATIVE (Negative); URINE BLOOD NEGATIVE (Negative); URINE CLARITY CLEAR; URINE COLOR YELLOW; URINE GLUCOSE-RANDOM NEGATIVE (Negative); URINE KETONES NEGATIVE (Negative); URINE LEUKOCYTES-REFLEX TRACE (Negative); URINE NITRITE-REFLEX NEGATIVE (Negative); URINE PROTEIN NEGATIVE (Negative); URINE UROBILINOGEN 0.2 E.U./dl (0.2-1.0)
[2021-03-24 13:21] LABS: BACTERIA-REFLEX None Seen /HPF (None Seen); CASTS None Seen /LPF (None Seen); SQUAMOUS >10 Many /LPF (0-3); URINE RBC 0-2 Rare /HPF (0-2); URINE WBC-REFLEX 0-5 Rare /HPF (0-5)
[2021-03-24 13:22] LABS: CRYSTALS None Seen /LPF (None Seen)
[2021-03-24 13:49] VITALS: BP 187/83
--- NOTE | 2021-03-24 13:58 | EKG ---
[place] [address] ELECTROCARDIOGRAM REPORT Name: KEATON CALZADA Room: [facility]#: [id number] Admission: 03/24/21 Attend Phys: Discharge: 03/24/21 Date of : 34 Date of Service: 03/24/21 1141 Report #: [id number] THIS REPORT FOR: //name// [facility] ED Test Date: 2021-03-24 Test Time: 11:41:38 Pat Name: KEATON CALZADA Department: Room: Gender: F Cost Controller: : 1930 Requested By: Maxi Barron Order Number: [id number] MD: Derek Cifuentes Measurements Intervals [place] Rate: 65 P: 27 TX: 192 QRS: 14 QRSD: 102 T: 7 QT: 437 QTc: 455 Interpretive Statements Sinus rhythm Anteroseptal infarct, old Compared to ECG 03/16/2020 08:17:03 Sinus bradycardia no longer present Myocardial infarct finding still present Electronically Signed On 03-24-2021 13:58:20 [employer] by Derek Cifuentes [email or web address] <ELECTRONICALLY SIGNED> By: Derek Cifuentes MD, FACC 03/24/21 1358 1141 1141 Derek Cifuentes MD, FAC /EPI
== END 2021-03-24 13:49 | disposition home or self-care (01) ==
LOC: M.ERS 11:34
PROVIDERS: Family Medicine
DX: G45.9 Transient cerebral ischemic attack, unspecified (principal); Z20.822 Contact with and (suspected) exposure to COVID-19; E11.9 Type 2 diabetes mellitus without complications; I10 Essential (primary) hypertension; E78.00 Pure hypercholesterolemia, unspecified; E03.9 Hypothyroidism, unspecified; Z90.49 Acquired absence of other specified parts of digestive tract; Z79.899 Other long term (current) drug therapy; Z90.89 Acquired absence of other organs; Z88.0 Allergy status to penicillin; Z88.8 Allergy status to other drugs, medicaments and biological substances